=== PATIENT | female | born 1960 | race Caucasian/White ===

== ENCOUNTER 2018-09-01 12:17 | Emergency (ER) | payer SELFPAY, MEDICAID ==
[2018-09-01] MEDS: ACETAMINOPHEN 325 MG TAB PO (14:14)
== END 2018-09-01 17:36 | disposition home or self-care (01) ==
LOC: FTE 12:17
DX: M25.561 Pain in right knee (principal); M25.562 Pain in left knee; R51 Headache; M54.2 Cervicalgia; I10 Essential (primary) hypertension
CPT/HCPCS: 70450; 72100; 72125; 73562-50; 99284-25